=== PATIENT | female | born 1975 ===

== ENCOUNTER 2019-03-15 12:45 | Emergency (ER) | payer SELFPAY ==
[~2019-03-15] VITALS: Ht 157.5 cm; Wt 74.6 kg
[2019-03-15 12:46] VITALS: BP 143/94
[2019-03-15] MEDS ORDERED: PRED20TA PO (12:59)
[2019-03-15] MEDS ORDERED: PLAQ200T4 PO (12:59)
[2019-03-15] MEDS ORDERED: CYMB60CA3 PO (12:59)
[2019-03-15] MEDS ORDERED: HYDR25TAB PO (12:59)
[2019-03-15] MEDS ORDERED: PRIL20TA2 PO (12:59)
[2019-03-15] MEDS ORDERED: RITU1INJ SC (13:00)
[2019-03-15] MEDS ORDERED: TRAM50TA2 PO (13:01)
== END 2019-03-15 14:32 | disposition left against medical advice (07) ==
LOC: M ED 12:45
DX: R07.9 Chest pain, unspecified (principal); Z53.21 Procedure and treatment not carried out due to patient leaving prior to being seen by health care provider